=== PATIENT | female | born 1935 | race Caucasian/White ===

== ENCOUNTER 2021-12-16 18:25 | Inpatient (IN) | payer MEDICARE, OTHER ==
[~2021-12-16] VITALS: Ht 153 cm; Wt 70.3 kg
[2021-12-16 20:04] LABS: HEMATOCRIT 37.4 % (31.2-41.9); MEAN CORPUSCULAR HEMOGLOBIN 30.3 uug (24.7-32.8); MEAN CORPUSCULAR VOLUME 91.1 fL (75.5-95.3); PLATELET COUNT (AUTO) 241 K/uL (179-408)
[2021-12-16 20:31] LABS: ALANINE AMINOTRANSFERASE 42 U/L (14-59); ALKALINE PHOSPHATASE 50 U/L (50-136); ASPARTATE AMINOTRANSFERASE 27 U/L (15-37); BILIRUBIN,DIRECT 0.1 mg/dL (0.0-0.2); BILIRUBIN,TOTAL 0.4 mg/dL (0.2-1.0); CARBON DIOXIDE 24 mmol/L (21-32); CHLORIDE 106 mmol/L (98-107); GLUCOSE 128 mg/dL (74-106); POTASSIUM 4.1 mmol/L (3.5-5.1); TOTAL PROTEIN, SERUM 6.9 g/dL (6.4-8.2); UREA NITROGEN, BLOOD 20 mg/dL (7-18)
[2021-12-16 20:33] LABS: ETHANOL < 3 MG/DL (0-0)
[2021-12-16 20:36] LABS: ACETAMINOPHEN < 2.0 ug/mL (10-30)
--- NOTE | 2021-12-16 20:40 | NUR ---
called warehouse shipping clerk Nga SAMUELS. no sitter available at this time
--- NOTE | 2021-12-16 21:00 | NUR ---
Patient is being combative. Screaming and shouting towards staff. Dr Wilder ordered Zyprexa 5mg IM
--- NOTE | 2021-12-16 21:55 | NUR ---
covid swab collected, sent to lab.
[2021-12-16] MEDS ORDERED: OLANZAPINE 10 MG VIAL IM ONE ×2 (22:00)
--- NOTE | 2021-12-17 00:35 | NUR ---
Called MHU for report. Spoke with Morgan. Will call back in 20 mins
--- NOTE | 2021-12-17 00:48 | NUR ---
report Given to Morgan SAMUELS. Patient will be transfered to MHU room 140B
--- NOTE | 2021-12-17 01:10 | NUR ---
Patient transfered to MHU via david by Nga SAMUELS
--- NOTE | 2021-12-17 01:14 | NUR ---
Pt. admitted to MHU room 140B , under care of Dr. Villar Belongs List completed
[2021-12-17] MEDS ORDERED: MAG HYDROX/AL HYDROX/SIMETH 30 ML LIQUID UDC PO PRN (02:15)
[2021-12-17] MEDS ORDERED: MAGNESIUM HYDROXIDE 30 ML LIQUID UDC PO PRN (02:15)
[2021-12-17 05:11] VITALS: BP 108/49
--- NOTE | 2021-12-17 06:34 | NUR ---
86 y/o female brought into MHU via gurney from ER. Pt is on a 5150 hold for DTS. Per information obtained from patient's residence ([facility]), pt was reported wandering the streets confused, disoriented, and had no shoes on. Pt was unable to let [place] [employer] were she lived, so [employer] brought her to [facility] in [place], [place]. Needing further psychiatric evaluation, pt was brought to [facility]'s ER dept. Upon face to face assessment in [facility]'s mental health unit, pt was AOx1, confused, disoriented, but able to be re-directed. Abnormal skin tissue noted above (L) eyebrow. Possible skin or ear infection above (L) ear. Pt is malodorous, disheveled, and unkept. Dry flaky skin is present on (R) upper back. Needs assistance with ambulation d/t unsteady gait and balance. No s/s of respiratory distress, nor pain. Medication reconciliation needed for patient's medications with psychiatrist Jian. Currently being treated for UTI.
[2021-12-17 07:35] VITALS: BP 132/59
--- NOTE | 2021-12-17 12:31 | NUR ---
GPS: Nursing Notes: Thought Disorder: Patient is awake and responding to her name, disoriented, impaired judgment, poor insight, compliant with nursing care, showered, poor historian, episodes of talking incoherently, A/Ox1, redirected and reoriented during shift, unable to formulate a viable plan for self care, isolative and withdrawn in her room, low energy level, refusing to participate in therapeutic groups, continue to monitor for safety, continue with treatment plan.
[2021-12-17 16:00] VITALS: BP 126/54
[2021-12-17 19:58] VITALS: BP 132/56
[2021-12-17] MEDS: OLANZAPINE 2.5 MG TABLET PO SCH (20:05)
--- NOTE | 2021-12-18 06:44 | NUR ---
GPS: Pt.slept 9 hrs.last night. Anxious at times but re-directable. Re-assured prn. Fall precautions observed. Insight and judgement remains impaired. No aggressive behavior noted. Will continue to monitor.
[2021-12-18 07:00] LABS: *AMPHETAMINE, URINE NEGATIVE (NEGATIVE); *CANNABINOID, URINE NEGATIVE (NEGATIVE); *COCCAINE, URINE NEGATIVE (NEGATIVE); *OPIATE, URINE NEGATIVE (NEGATIVE); *PHENCYCLIDINE SCREEN,URINE NEGATIVE (NEGATIVE)
[2021-12-18 07:01] LABS: *BILIRUBIN,URIN NEGATIVE (NEGATIVE); *CLARITY,URINE CLEAR (CLEAR); *COLOR,URINE YELLOW (YELLOW); *KETONES,URINE NEGATIVE (NEGATIVE); *UROBILINOGEN,URINE 0.2 E.U./dl (NORMAL); LEUKOCYTE ESTERASE ,URINE 1+ (NEGATIVE); NITRITE, URINE NEGATIVE (NEGATIVE); PH,URINE 5.5 (5.0-8.0); UGLUCOSE NEGATIVE (NEGATIVE)
[2021-12-18 07:30] VITALS: BP 136/62
[2021-12-18 08:21] LABS: *BLOOD, URINE TRACE (NEGATIVE)
--- NOTE | 2021-12-18 13:43 | NUR ---
Pt's had increased anxiety and agitation when attempting to clean and change her diapers d/t soiling. Gave Ativan 1mg. Will continue to monitor. Addendum: 12/18/21 at 1348 by HUDSON SIMEON LVN Correction: Error: Gave Clonazepam (Klonopin) 0.5 mg, x1 tablet instead of Ativan as stated above.
[2021-12-18] MEDS: CLONAZEPAM 0.5 MG TABLET PO PRN (13:48)
[2021-12-18 16:00] VITALS: BP 136/70
--- NOTE | 2021-12-18 16:26 | NUR ---
ITA Initial Discharge Plan: Pt currently resides at [facility]. No additional information at this time. It is unclear at this time if pt will return to this facility. ITA contacted pt's son, Julius [phone] and left a voicemail for a call back regarding the discharge plan. ITA will continue to work with pt, family and MD to ensure a safe and proper discharge plan.
[2021-12-18 19:50] VITALS: BP 130/64
[2021-12-18] MEDS: OLANZAPINE 2.5 MG TABLET PO SCH (20:05)
[2021-12-18] MEDS: CEphaleXIN 250 MG CAPSULE PO SCH (21:04)
[2021-12-18] MEDS: METFORMIN HCL 500 MG TABLET PO SCH (21:05)
[2021-12-18 22:42] LABS: BACTERIA,URINE NONE SEEN /HPF (NONE SEEN); RBC,URINE 0-3 /HPF (0-3); SQUAMOUS EPITHELIAL CELL,UR FEW /HPF (NONE SEEN)
[2021-12-18] MEDS: REMEDY ESSENTIAL ZINC PASTE 113 GM TOP PRN (22:42)
[2021-12-19] MEDS: CEphaleXIN 250 MG CAPSULE PO SCH ×3 (06:19→21:19)
[2021-12-19 07:30] VITALS: BP 135/47
--- NOTE | 2021-12-19 09:33 | NUR ---
ITA Family Contact: ITA contacted pt's son, Julius [phone] and was unable to leave a voicemail for a call back regarding the discharge plan.
[2021-12-19] MEDS: METFORMIN HCL 500 MG TABLET PO SCH ×2 (10:24→18:38)
--- NOTE | 2021-12-19 14:45 | NUR ---
Firearms Report: Hospice Aide completed and submitted a [employer] firearms report for 5150 grave disability certifications. A copy of report has been placed in patient chart.
[2021-12-19 16:00] VITALS: BP 144/49
[2021-12-19 19:48] VITALS: BP 125/72
[2021-12-19] MEDS: OLANZAPINE 2.5 MG TABLET PO SCH (21:19)
[2021-12-19] MEDS: TEMAZEPAM 7.5 MG CAPSULE PO PRN (23:54)
[2021-12-20] MEDS: CLONAZEPAM 0.5 MG TABLET PO PRN (01:10)
[2021-12-20] MEDS: CEphaleXIN 250 MG CAPSULE PO SCH ×3 (06:08→21:09)
--- NOTE | 2021-12-20 06:55 | NUR ---
Pt had no sleep last night. Pt was hallucinating, talking to the invisible people and pointing at invisible objects. Pt was in and out of the bed, walking out of her room, saying that she is going shopping or she is going to "her room". Redirections are not effective. Pt has poor safety awareness. PRN medications for insomnia and agitation were not effective. Pt was assisted out of the bed to a neal chair.
[2021-12-20] MEDS: METFORMIN HCL 500 MG TABLET PO SCH ×2 (09:14→18:00)
[2021-12-20 16:18] VITALS: BP 115/41
--- NOTE | 2021-12-20 17:30 | NUR ---
Gps/Alignment Mechanic- Stayed in her neal-chair most of the morning , assisted with her meals, compliant with routine meds. left parietal bumps, Sleepy this pm. was assisted to bed max assist.
[2021-12-20 19:56] VITALS: BP 115/47
[2021-12-20] MEDS: OLANZAPINE 2.5 MG TABLET PO SCH (20:56)
[2021-12-21] MEDS: ACETAMINOPHEN 325 MG TABLET PO PRN (04:06)
[2021-12-21] MEDS: CLONAZEPAM 0.5 MG TABLET PO PRN (04:06)
--- NOTE | 2021-12-21 06:00 | NUR ---
PATIENT SLEPT WELL THROUGHOUT THE NIGHT. SHOWERED AND DRESSING APPLIED TO AFFECTED AREA.
[2021-12-21] MEDS: CEphaleXIN 250 MG CAPSULE PO SCH (06:10)
[2021-12-21 07:30] VITALS: BP 109/53
[2021-12-21] MEDS: LISINOPRIL 5 MG TABLET PO SCH (09:56)
[2021-12-21] MEDS: METFORMIN HCL 500 MG TABLET PO SCH ×2 (09:56→17:06)
--- NOTE | 2021-12-21 11:10 | NUR ---
Gps/Malt House Supervisor- Stayed up in her enal-chair, was moaning, , when asked if she ok, claimed " i 'm ok" Assisted to the bathroom with 2 staff assisting, needing verbal cueing in sequencing her task. Dressing to her head, to protect left temporal bumps . Skin very dry, tenting , fragile [employer] of loose stools, , voiding adequately, assisted with hygien, redness coccygeal area, z-guard applied.
[2021-12-21 16:00] VITALS: BP 101/47
[2021-12-21] MEDS: GLUCERNA SHAKE 237 ML CAN PO SCH (17:00)
[2021-12-21 20:22] VITALS: BP 121/51
[2021-12-21] MEDS: OLANZAPINE 2.5 MG TABLET PO SCH (20:23)
--- NOTE | 2021-12-22 05:28 | NUR ---
GPS: Remain calm and cooperative with meds and care. good joey care provided. kept clean and dry. Anxious at times but re-directable. Re-assured prn. Fall precautions observed. Insight and judgement remains impaired. No aggressive behavior noted. Will continue to monitor.
--- NOTE | 2021-12-22 05:53 | NUR ---
slept 8.45 hrs through the night.
[2021-12-22 07:45] VITALS: BP 111/52
[2021-12-22] MEDS: METFORMIN HCL 500 MG TABLET PO SCH ×2 (09:25→18:17)
[2021-12-22] MEDS: GLUCERNA SHAKE 237 ML CAN PO SCH ×2 (09:25→17:32)
[2021-12-22] MEDS: LISINOPRIL 5 MG TABLET PO SCH (09:25)
--- NOTE | 2021-12-22 16:45 | NUR ---
Gps/Lmsw- Toileted, voiding adequately, encouraged to feed self. Compliant with her routine meds. Left parietal skin bumps with dressing remains secured. Interacts when engaged,Safety emphasized.
--- NOTE | 2021-12-22 17:00 | NUR ---
Gps/Stamper Blocker- Stayed in her hgeri-chair during the theday
[2021-12-22 20:29] VITALS: BP 111/63
[2021-12-22] MEDS: OLANZAPINE 2.5 MG TABLET PO SCH (21:19)
--- NOTE | 2021-12-23 00:22 | NUR ---
Pt is compliant with POC. Keratoma above (L) eye/on forehead was covered by previous nurse with 4x4 gauze, Kerlix, and secured with tape.
[2021-12-23 07:46] VITALS: BP 127/53
[2021-12-23] MEDS: GLUCERNA SHAKE 237 ML CAN PO SCH ×2 (08:00→16:47)
[2021-12-23] MEDS: METFORMIN HCL 500 MG TABLET PO SCH ×2 (09:15→17:03)
[2021-12-23] MEDS: LISINOPRIL 5 MG TABLET PO SCH (09:16)
[2021-12-23] MEDS: REMEDY ESSENTIAL ZINC PASTE 113 GM TOP SCH ×2 (09:17→21:25)
--- NOTE | 2021-12-23 11:57 | NUR ---
WOUND CARE CONSULT: PT SEEN FOR FACIAL LESIONS WHICH ARE PAINFUL WITH SOME BLEEDING NOTED AND SLIGHT ODOR. PRESENT ON ADMISSION. PT STATES THAT THEY ARE SKIN CANCER BUT SHE IS UNSURE WHICH TYPE OF CANCER. DR MELLO CALLED FOR SURGICAL CONSULT. IN AGREEMENT WITH PLAN OF CARE.
--- NOTE | 2021-12-23 13:12 | NUR ---
GPS: Nursing Notes: Thought Disorder: Patient is awake and responding to her name, A/OX2, disoriented to time, forgetful at times, disorganized, poor appetite, refusing to eat, stated "I don't know.. I am not hungry..", no interactions with peers, depressed mood and withdrawn affect, unable to formulate a viable plan for self care, episodes of talking to self, gets easily angry when food is offer to her, continue to monitor for safety, continue to be drinking fluids, continue with treatment plan.
--- NOTE | 2021-12-23 15:06 | NUR ---
ITA Discharge update: ITA spoke with adali in admissions ([phone]) F:[phone] at [facility]. Adali said they will review updated clinicals upon discharge for readmission.
[2021-12-23 16:11] VITALS: BP 109/54
[2021-12-23 19:48] VITALS: BP 137/63
[2021-12-23] MEDS: OLANZAPINE 5 MG TABLET PO SCH (21:25)
[2021-12-24 07:30] VITALS: BP 120/49
[2021-12-24] MEDS: GLUCERNA SHAKE 237 ML CAN PO SCH ×2 (08:00→16:27)
[2021-12-24] MEDS: METFORMIN HCL 500 MG TABLET PO SCH ×2 (08:00→17:13)
[2021-12-24] MEDS: LISINOPRIL 5 MG TABLET PO SCH (08:39)
[2021-12-24] MEDS: CLONAZEPAM 0.5 MG TABLET PO PRN (08:39)
[2021-12-24] MEDS: REMEDY ESSENTIAL ZINC PASTE 113 GM TOP SCH ×2 (08:40→20:27)
[2021-12-24] MEDS ORDERED: SILVER NITRATE APPLICATOR STICK EACH TP ONE (10:30)
[2021-12-24] MEDS ORDERED: LIDOCAINE 1%-EPI 1:100,000 20 ML VIAL IJ ONE (10:30)
[2021-12-24 15:31] VITALS: BP 110/50
--- NOTE | 2021-12-24 16:01 | NUR ---
GPS: Nursing Notes: Thought Disorder: Patient is awake and responding to her name, poor appetite, refusing to eat, continue to encourage fluid intake, gets easily angry and paranoid when redirected, shouting "I don't want to eat, continue drinking fluids, resistant with nursing care, episode fo mumbling to unseen others, unable to formulate a viable plan for self care, redirected and reoriented during shift, continue to monitor for safety, continue with treatment plan.
[2021-12-24 20:23] VITALS: BP 117/60
[2021-12-24] MEDS: OLANZAPINE 5 MG TABLET PO SCH (20:45)
[2021-12-25] MEDS: REMEDY ESSENTIAL ZINC PASTE 113 GM TOP PRN (05:33)
--- NOTE | 2021-12-25 06:23 | NUR ---
GPS: Pt.slept 9.45 last night. Remains confused,disoriented and disorganized. Reality re-orientation provided. Less anxious and listens to re-assurance and re-direction from staff. Incontinence care rendered. No diarrhea episodes noted . Encouraged to eat meals served during the day. Fluids encouraged. Afebrile.
[2021-12-25 07:30] VITALS: BP 115/53
[2021-12-25] MEDS: METFORMIN HCL 500 MG TABLET PO SCH ×2 (07:40→09:14)
[2021-12-25] MEDS: GLUCERNA SHAKE 237 ML CAN PO SCH ×2 (08:00→09:01)
[2021-12-25] MEDS: LISINOPRIL 5 MG TABLET PO SCH (08:46)
[2021-12-25] MEDS: REMEDY ESSENTIAL ZINC PASTE 113 GM TOP SCH ×2 (09:00→20:11)
[2021-12-25 15:43] VITALS: BP 92/50
[2021-12-25 19:58] VITALS: BP 101/51
[2021-12-25] MEDS: OLANZAPINE 5 MG TABLET PO SCH (20:11)
[2021-12-26] MEDS: TEMAZEPAM 7.5 MG CAPSULE PO PRN (01:47)
[2021-12-26] MEDS: REMEDY ESSENTIAL ZINC PASTE 113 GM TOP PRN (05:37)
[2021-12-26 07:30] VITALS: BP 131/57
[2021-12-26] MEDS: METFORMIN HCL 500 MG TABLET PO SCH ×2 (09:08→17:47)
[2021-12-26] MEDS: LISINOPRIL 5 MG TABLET PO SCH (09:08)
[2021-12-26] MEDS: GLUCERNA SHAKE 237 ML CAN PO SCH ×2 (09:09→17:39)
[2021-12-26] MEDS: REMEDY ESSENTIAL ZINC PASTE 113 GM TOP SCH ×2 (09:29→20:33)
--- NOTE | 2021-12-26 12:25 | NUR ---
Gps/Heel Nail Rasper- Incontinent of loose stools. God joey- care/ skin care rendered, joey-area cleansed with soap and water, kept dry, z-guard applied to excoriated areas. Repositioned to her right side , pressure relief . Adequate fluid intake, offered fluids.
--- NOTE | 2021-12-26 12:57 | NUR ---
PC Hearing: Patient had 5250 probable cause hearing on 12/20/21 and it was upheld for grave disability.
[2021-12-26 17:25] VITALS: BP 105/52
--- NOTE | 2021-12-26 17:30 | NUR ---
Gps/Marketing Summer Intern- Offered to be fed during each meals, refused , willing to take Glucerna supplements, ,not sure if causing patient to have loose stools. Kept skin dry clean.
[2021-12-26] MEDS: ACETAMINOPHEN 325 MG TABLET PO PRN (17:59)
[2021-12-26] MEDS: OLANZAPINE 5 MG TABLET PO SCH (20:33)
[2021-12-26 20:47] VITALS: BP 118/50
--- NOTE | 2021-12-27 04:27 | NUR ---
Awake at beginning of shift. Took meds without difficulty. No acute distress noted. Incontinent of bowel and bladder. Kept clean and dry. BM noted this shift. No signs of agitation or restlessness. Calm and cooperative with care. Fall precautions maintained. Bed alarm on.
[2021-12-27 07:30] VITALS: BP 134/48
[2021-12-27] MEDS: METFORMIN HCL 500 MG TABLET PO SCH ×2 (08:00→18:00)
[2021-12-27] MEDS: GLUCERNA SHAKE 237 ML CAN PO SCH ×2 (08:00→16:50)
[2021-12-27] MEDS: LISINOPRIL 5 MG TABLET PO SCH (08:58)
--- NOTE | 2021-12-27 14:42 | NUR ---
ITA Discharge update: ITA called and spoke with Adali in admissions ([phone]) F:[phone] [facility]. Adali said she will call back with updates on bed availability. ITA faxed updated clinicals for review.
--- NOTE | 2021-12-27 14:51 | NUR ---
SNF Referrals: SW faxed patient's referral packet including: History and Physical, Consultation, Progress Notes, Medication List and Labs to the following facilities for review and possible residential placement: [facility] [address] [place] [address] ([phone]), Favian Ramirez [address] [place] [address] ([phone]) attn: mary Rodríguez [address] [address] ([phone]) attn: Jackelin for review.
--- NOTE | 2021-12-27 15:12 | NUR ---
SW Discharge Update: ITA received call from Adali in admissions ([phone]) F:[phone] at [facility] informing they are unable to accept pt. Adali explained that DON declined referral as pt left AMA and called the police.
--- NOTE | 2021-12-27 15:18 | NUR ---
SNF Referrals: SW faxed patient's referral packet including: History and Physical, Consultation, Progress Notes, Medication List and Labs to the following facility for review and possible penitentiary placement: [address] [address] ([phone]) attn: Marcelino for review.
[2021-12-27 16:00] VITALS: BP 143/64
[2021-12-27] MEDS: REMEDY ESSENTIAL ZINC PASTE 113 GM TOP SCH ×2 (16:49→20:29)
[2021-12-27] MEDS ORDERED: LOPERAMIDE HCL 2 MG CAPSULE PO PRN (19:45)
[2021-12-27 20:00] VITALS: BP 124/62
[2021-12-27] MEDS: OLANZAPINE 5 MG TABLET PO SCH (20:29)
--- NOTE | 2021-12-28 06:08 | NUR ---
GPS: Remain cooperative with meds. easily get agitated when proving adl's. good joey care given. reposition q 2 hrs for skin safety. slept 8 hrs through the night. continue plan of care.
[2021-12-28 07:56] VITALS: BP 132/64
[2021-12-28] MEDS: PROTEIN SUPPLEMENT (PROSTAT) 30 ML LIQUID PO SCH (08:00)
[2021-12-28] MEDS: METFORMIN HCL 500 MG TABLET PO SCH ×2 (08:00→18:00)
[2021-12-28] MEDS: GLUCERNA SHAKE 237 ML CAN PO SCH ×3 (08:23→16:30)
[2021-12-28] MEDS: CLONAZEPAM 0.5 MG TABLET PO PRN (08:23)
[2021-12-28] MEDS: REMEDY ESSENTIAL ZINC PASTE 113 GM TOP SCH ×2 (08:24→21:27)
[2021-12-28] MEDS: LISINOPRIL 5 MG TABLET PO SCH (08:46)
[2021-12-28] MEDS: ASPIRIN EC 81 MG TABLET.DR PO SCH (09:09)
--- NOTE | 2021-12-28 13:53 | NUR ---
GPS: Nursing Notes: Thought Disorder: Patient is awake and responding to her name, impaired judgment, resistant with nursing care, gets easily irritable when assisting her with her ADL's, refusing to eat her meals and supplements, stating "I am not hungry... I just want to drink water..", encouraged to eat her meals, but gets easily angry toward staff shouting "I told you.. I am not hungry..", depressed mood and angry affect, resistant with nursing care, unable to formulate a viable plan for self care, impaired judgment, poor insight, disoriented, forgetful at times, continue to monitor for safety, continue with treatment plan.
[2021-12-28 16:18] VITALS: BP 105/44
[2021-12-28 19:54] VITALS: BP 109/49
[2021-12-28] MEDS: ATORVASTATIN 20 MG TABLET PO SCH (20:40)
[2021-12-28] MEDS: OLANZAPINE 5 MG TABLET PO SCH (20:40)
[2021-12-29] MEDS: CLONAZEPAM 0.5 MG TABLET PO PRN ×2 (02:07→08:13)
--- NOTE | 2021-12-29 02:07 | NUR ---
patient c/o anxiety. Klonopin 0.5 mg po prn given for anxiety.
--- NOTE | 2021-12-29 03:07 | NUR ---
patient resting in bed.quitely prn for anxiety effective.
--- NOTE | 2021-12-29 06:33 | NUR ---
GPS: Remain cooperative with meds. easily get agitated when proving adl's. good joey care given. reposition q 2 hrs for skin safety. took shower this morning. slept 9.45 hrs through the night. resting in neal chair at this time. continue plan of care.
[2021-12-29 07:52] VITALS: BP 122/66
[2021-12-29] MEDS: METFORMIN HCL 500 MG TABLET PO SCH ×2 (08:00→17:11)
[2021-12-29] MEDS: LISINOPRIL 5 MG TABLET PO SCH (08:13)
[2021-12-29] MEDS: ASPIRIN EC 81 MG TABLET.DR PO SCH (08:13)
[2021-12-29] MEDS: PROTEIN SUPPLEMENT (PROSTAT) 30 ML LIQUID PO SCH (08:15)
[2021-12-29] MEDS: GLUCERNA SHAKE 237 ML CAN PO SCH ×3 (08:17→16:36)
[2021-12-29] MEDS: REMEDY ESSENTIAL ZINC PASTE 113 GM TOP SCH ×2 (08:18→21:08)
[2021-12-29 16:11] VITALS: BP 103/65
--- NOTE | 2021-12-29 17:01 | NUR ---
GPS: Nursing Notes: Thought Disorder: Patient is awake and responding to her name, evasive when questioned by staff, poor appetite, eating 25% of her breakfast tray, depressed mood and angry affect, compliant with her medications, disoriented, impaired judgment, informed her psychiatrist of her poor appetite and depression - To start Remeron tonight, unable to formulate a viable for self care, continue to monitor for safety, continue with treatment plan.
[2021-12-29] MEDS: GUAIFENESIN/DEXTROMETHORPHAN 5 ML UDC PO PRN (17:23)
[2021-12-29 20:06] VITALS: BP 105/50
[2021-12-29] MEDS: OLANZAPINE 5 MG TABLET PO SCH (21:07)
[2021-12-29] MEDS: ATORVASTATIN 20 MG TABLET PO SCH (21:07)
[2021-12-29] MEDS: MIRTAZAPINE 15 MG TABLET PO SCH (21:08)
[2021-12-29] MEDS: TEMAZEPAM 7.5 MG CAPSULE PO PRN (21:39)
[2021-12-29] MEDS: ACETAMINOPHEN 325 MG TABLET PO PRN (21:40)
--- NOTE | 2021-12-29 21:40 | NUR ---
Patient requested medication to help with sleep. Gave Temazepam 7.5mg for insomnia. Will continue to monitor.
[2021-12-30] MEDS: ACETAMINOPHEN 325 MG TABLET PO PRN ×2 (05:06→21:57)
--- NOTE | 2021-12-30 05:06 | NUR ---
Cleansed patients perineal area and changed diapers. Applied Z-Guard for redness and irritated skin. Gave Tylenol d/t tenderness and pain when cleaning irritated/reddened buttocks. Will continue to monitor.
[2021-12-30 07:47] VITALS: BP 94/41
[2021-12-30] MEDS: PROTEIN SUPPLEMENT (PROSTAT) 30 ML LIQUID PO SCH (08:00)
[2021-12-30] MEDS: METFORMIN HCL 500 MG TABLET PO SCH ×2 (08:00→17:10)
[2021-12-30] MEDS: REMEDY ESSENTIAL ZINC PASTE 113 GM TOP SCH ×2 (08:03→20:38)
[2021-12-30] MEDS: ASPIRIN EC 81 MG TABLET.DR PO SCH ×2 (08:31→12:00)
[2021-12-30] MEDS: GLUCERNA SHAKE 237 ML CAN PO SCH ×3 (08:32→17:00)
[2021-12-30] MEDS: LISINOPRIL 5 MG TABLET PO SCH (08:32)
--- NOTE | 2021-12-30 09:32 | NUR ---
GPS: Nursing Notes: Discharge to Med. Surg. Informed to Nursing Clipper Operator: Staff called Nursing Clipper Operator to get a bed for the medical floor department, Sam Wilson NP to discharge patient to Med. Surg. with Dx: Poor nutritional intake, Nursing Clipper Operator stated that "She will call staff back with a bed number to discharge patient to the medical floor..", Sam Wilson NP to discontinue the 5250 upon discharge to Med. Surg, continue to monitor for safety, continue with treatment plan.
[2021-12-30] MEDS: GUAIFENESIN/DEXTROMETHORPHAN 5 ML UDC PO PRN (12:00)
[2021-12-30 16:07] VITALS: BP 109/47
--- NOTE | 2021-12-30 16:52 | NUR ---
GPS: Nursing Notes: Discharge to Med. Surg: Staff called back the nursing supervisor fish hatchery for a bed number to discharge patient to the medical floor, but she stated that "the patient needs to be discharge to next shift because there are no bed available right now, continue to monitor for safety, informed Earlene of the situation stated "it is okay..", continue with treatment plan.
--- NOTE | 2021-12-30 19:22 | NUR ---
GPS: Nursing Notes: To Be Discharge Next Shift: staff informed incoming shift nurse of discharge, incoming shift nurse to discharge patient to Med. Surg. Patient refused for pictures to be taken of her facial mass, but incoming nurse would tried again, continue with treatment plan.
[2021-12-30 20:00] VITALS: BP 114/47
[2021-12-30] MEDS: ATORVASTATIN 20 MG TABLET PO SCH (20:37)
[2021-12-30] MEDS: OLANZAPINE 5 MG TABLET PO SCH (20:37)
[2021-12-30] MEDS: MIRTAZAPINE 15 MG TABLET PO SCH (20:41)
[2021-12-30] MEDS: CLONAZEPAM 0.5 MG TABLET PO PRN (21:57)
--- NOTE | 2021-12-30 22:10 | NUR ---
DISCHARGE NOTES: Patient discharged to MED-SURG floor d/t to failure to thrive. Pictures on the buttocks. ear and forehead taken. Patient is noted facial grimacing and moaning, and agitated. Given tylenol and klonopon per order. Safely transferred from bed to w/c. No distress noted. Wheeled safely to room 308 by CRYOGENICS ENGINEER on duty.
== END 2021-12-30 22:08 | disposition short-term general hospital (02) | DRG 885 ==
LOC: ER 18:29 → GPS 23:30
PROVIDERS: ADMIT Nurse Practitioner Psychiatric/Mental Health; ATTEND Internal Medicine
PROC: 0JB Subcutaneous Tissue and Fascia, Excision (ICD-10-PCS; principal; 2021-12-24)
DX: F29 Unspecified psychosis not due to a substance or known physiological condition (principal); N39.0 Urinary tract infection, site not specified; F03.92 Unspecified dementia, unspecified severity, with psychotic disturbance; E66.9 Obesity, unspecified; Z68.30 Body mass index [BMI] 30.0-30.9, adult; E11.9 Type 2 diabetes mellitus without complications; E78.1 Pure hyperglyceridemia; Z20.822 Contact with and (suspected) exposure to COVID-19; Z87.891 Personal history of nicotine dependence; Z86.73 Personal history of transient ischemic attack (TIA), and cerebral infarction without residual deficits; I10 Essential (primary) hypertension; R22.9 Localized swelling, mass and lump, unspecified; Z87.11 Personal history of peptic ulcer disease; Z85.828 Personal history of other malignant neoplasm of skin
CPT/HCPCS: 36415; 70450; 70480; 85025; 87086; 93005; A4663; G0480; J2358; J3490

== ENCOUNTER 2021-12-30 21:15 | Inpatient (IN) | payer MEDICARE, OTHER ==
[2021-12-30 22:15] VITALS: BP 105/53
--- NOTE | 2021-12-30 23:30 | NUR ---
Patient is admitted to room 309 form MHU where she was originally transferred from [facility] for care after she found agitated and eloped from SNF as per previous record. Patient is alert and confused, not a good historian all information is obtain from her transfer paper. Patient has left eyebrow lesion, sacral excoriation, she is incontinent of bowel and bladder care done made comfortable call light within reach.
[2021-12-31] VITALS (7 sets, daily range): BP systolic 105–143; BP diastolic 53–83
[2021-12-31] MEDS ORDERED: REMEDY ESSENTIAL ZINC PASTE 113 GM TP PRN (03:00)
[2021-12-31] MEDS ORDERED: ACETAMINOPHEN 325 MG TABLET PO PRN (03:00)
[2021-12-31] MEDS ORDERED: ONDANSETRON 4 MG/2 ML VIAL IV PRN (03:00)
[2021-12-31 05:58] LABS: *BILIRUBIN,URIN 1+ (NEGATIVE); *BLOOD, URINE NEGATIVE (NEGATIVE); *CLARITY,URINE CLEAR (CLEAR); *COLOR,URINE YELLOW (YELLOW); *KETONES,URINE TRACE (NEGATIVE); *UROBILINOGEN,URINE 0.2 E.U./dl (NORMAL); LEUKOCYTE ESTERASE ,URINE NEGATIVE (NEGATIVE); NITRITE, URINE NEGATIVE (NEGATIVE); PH,URINE 5.5 (5.0-8.0); UGLUCOSE NEGATIVE (NEGATIVE)
[2021-12-31] MEDS: IV D5 1/2 NS 1000 ML 1,000 ML IV PRN (06:44)
[2021-12-31 07:09] LABS: HEMATOCRIT 38.1 % (31.2-41.9); MEAN CORPUSCULAR HEMOGLOBIN 30.7 uug (24.7-32.8); MEAN CORPUSCULAR VOLUME 88.7 fL (75.5-95.3); PLATELET COUNT (AUTO) 166 K/uL (179-408)
[2021-12-31 07:27] LABS: ALANINE AMINOTRANSFERASE 47 U/L (14-59); ALKALINE PHOSPHATASE 62 U/L (50-136); ASPARTATE AMINOTRANSFERASE 32 U/L (15-37); BILIRUBIN,TOTAL 0.6 mg/dL (0.2-1.0); CARBON DIOXIDE 19 mmol/L (21-32); CHLORIDE 105 mmol/L (98-107); CREATININE 1.6 mg/dL (0.6-1.3); GLUCOSE 99 mg/dL (74-106); MAGNESIUM 2.2 mg/dL (1.8-2.4); PHOSPHOROUS 5.8 mg/dL (2.5-4.9); POTASSIUM 3.2 mmol/L (3.5-5.1); TOTAL PROTEIN, SERUM 6.4 g/dL (6.4-8.2); UREA NITROGEN, BLOOD 53 mg/dL (7-18)
[2021-12-31] MEDS: PANTOPRAZOLE SODIUM 40 MG TABLET.DR PO SCH (07:43)
--- NOTE | 2021-12-31 10:45 | NUR ---
Patient was seen by psychologist this morning she was awake more alert, expresses her needs to the doctor and the reason for her poor appetite. Patient consumed O% of her breakfast despite much encouragement. Staff will continue to monitor and encourage patient verbalize food preferences.
[2021-12-31 15:17] LABS: THYROID STIMULATING HORMONE 2.463 mIU/mL (0.358-3.740)
[2021-12-31 18:13] LABS: NEUTROPHILS % (MANUAL) 0 % (42-75)
[2021-12-31] MEDS: MIRTAZAPINE 15 MG TABLET PO SCH (21:00)
[2022-01-01 04:15] VITALS: BP 121/57
[2022-01-01] MEDS: PANTOPRAZOLE SODIUM 40 MG TABLET.DR PO SCH (06:32)
[2022-01-01] MEDS: IV D5 1/2 NS 1000 ML 1,000 ML IV PRN (07:03)
[2022-01-01 07:19] LABS: CREATININE 1.2 mg/dL (0.6-1.3); MAGNESIUM 2.1 mg/dL (1.8-2.4); PHOSPHOROUS 3.8 mg/dL (2.5-4.9); POTASSIUM 3.5 mmol/L (3.5-5.1)
[2022-01-01 08:14] LABS: HEMATOCRIT 39.8 % (31.2-41.9); MEAN CORPUSCULAR HEMOGLOBIN 30.1 uug (24.7-32.8); MEAN CORPUSCULAR VOLUME 88.7 fL (75.5-95.3); PLATELET COUNT (AUTO) 185 K/uL (179-408)
--- NOTE | 2022-01-01 10:51 | NUR ---
WOUND CARE CONSULT: PT PRESENTS WITH RASH/OPEN SKIN TO INNER BUTTOCKS AREA DUE TO INCONTINENCE OF URINE AND STOOL WELL LESIONS TO LEFT SIDE OF FACE, PRESENT ON ADMISSION. PT FOLLOWED BY PLASTIC SURGERY TEAM FOR FACE. RECOMMENDATIONS MADE FOR SKIN PROTECTION. DISCUSSED WITH NURSING STAFF. IN AGREEMENT WITH PLAN OF CARE. Addendum: 01/01/22 at 1053 by YESSICA FORRESTER RN Amended: Links added.
[2022-01-01 11:47] VITALS: BP 125/66
[2022-01-01 15:54] VITALS: BP 131/49
[2022-01-01] MEDS: CLOTRIMAZOLE 1% CREAM 30 GM TUBE TOP SCH (18:01)
--- NOTE | 2022-01-01 19:01 | NUR ---
pt alert orient 2-3. no complain of pain. no sob noted. pt is bedrest. no acute distress noted. fall precaution observed. pt is cooperative with staff. rashes on groin and buttocks area. wound care nurse consulted; lotrimin cream was ordered. geovanna midline patent and intact running d51/2 at 75cc/hr. pt have multiple episode of loose stool notified no new order.
--- NOTE | 2022-01-01 19:24 | NUR ---
Received report at this time from nurse Linda.
--- NOTE | 2022-01-01 19:43 | NUR ---
Rounded on patient and noted patient has taken out own midline. Catheter tip intact. Gauze and tape placed. Notified charged RN.
[2022-01-01 20:00] VITALS: BP 113/53
[2022-01-01] MEDS: MIRTAZAPINE 15 MG TABLET PO SCH (20:25)
[2022-01-02 04:00] VITALS: BP 102/63
[2022-01-02] MEDS: PANTOPRAZOLE SODIUM 40 MG TABLET.DR PO SCH ×2 (07:00→07:56)
--- NOTE | 2022-01-02 07:13 | NUR ---
Report given to ABRIL Linda at this time. Pt slept throughout night. Uneventful besides the pulling out of midline. Unable to establish another iv access. Failed attempt x3. Endorsed to dayshift.
[2022-01-02] MEDS: CLOTRIMAZOLE 1% CREAM 30 GM TUBE TOP SCH ×2 (09:28→16:52)
[2022-01-02 11:08] VITALS: BP 108/48
[2022-01-02] MEDS: IV D5 1/2 NS 1000 ML 1,000 ML IV PRN (13:48)
--- NOTE | 2022-01-02 13:48 | NUR ---
Patient got another midline today as she pulled out her first one. She removed her second midline and refused my attempt to put a new iv line on her. She also refused IV fluids. Dr Crews is aware now
[2022-01-02 15:17] VITALS: BP 124/61
[2022-01-02] MEDS ORDERED: LORAZEPAM 2 MG/1 ML VIAL IM PRN (16:45)
--- NOTE | 2022-01-02 20:00 | NUR ---
Received patient lying in bed. AAOx1 only. Mainly confused and disoriented. In no apparent distress. Slightly anxious/fidgety but redirectable. Refused to have VS taken. No IV site per day shift (Dr Mcghee aware). Needs assessed and attended to. Safety measure initiated and call light within reached.
[2022-01-02] MEDS: MIRTAZAPINE 15 MG TABLET PO SCH (20:05)
[2022-01-03 04:00] VITALS: BP 115/74
[2022-01-03] MEDS: PANTOPRAZOLE SODIUM 40 MG TABLET.DR PO SCH (06:14)
[2022-01-03] MEDS ORDERED: GLIMEPIRIDE 2 MG TABLET PO SCH (08:00)
[2022-01-03] MEDS: CLOTRIMAZOLE 1% CREAM 30 GM TUBE TOP SCH ×2 (08:18→17:53)
--- NOTE | 2022-01-03 09:51 | NUR ---
Patient slept well during the night. All due meds given and taken. No anxiety noted. Cooperative with care. Needs assessed and attended to. Safety measure maintained and call light within reached.
[2022-01-03 11:06] VITALS: BP 127/52
[2022-01-03 16:10] VITALS: BP 91/37
[2022-01-03] MEDS ORDERED: CLOT30CR24 TOP (16:23)
[2022-01-03] MEDS ORDERED: MIRT-93 PO (16:23)
[2022-01-03] MEDS ORDERED: GLIM2TAB PO (16:23)
[2022-01-03] MEDS ORDERED: ACET325T53 PO (16:23)
[2022-01-03] MEDS ORDERED: DOCU-141 PO (16:23)
[2022-01-03] MEDS ORDERED: PANT40TA49 PO (16:23)
[2022-01-03] MEDS ORDERED: OLAN2.5T3 PO (16:23)
[2022-01-03 16:48] VITALS: BP 104/56
[2022-01-03 20:00] VITALS: BP 113/49
--- NOTE | 2022-01-03 20:59 | NUR ---
2100 Picked up by ambulance for [facility] discharge and in stable condition. No complaints of pain and shortness of breath.
== END 2022-01-03 21:00 | DRG 682 ==
LOC: MEDSURG3 21:15
PROVIDERS: ADMIT Internal Medicine; ATTEND Internal Medicine
PROC: 05H533Z Insertion of Infusion Device into Right Subclavian Vein, Percutaneous Approach (ICD-10-PCS; principal; 2021-12-31)
PROC: B546ZZA Ultrasonography of Right Subclavian Vein, Guidance (ICD-10-PCS; 2021-12-31)
PROC: 05H633Z Insertion of Infusion Device into Left Subclavian Vein, Percutaneous Approach (ICD-10-PCS; 2022-01-02)
PROC: B547ZZA Ultrasonography of Left Subclavian Vein, Guidance (ICD-10-PCS; 2022-01-02)
DX: N17.0 Acute kidney failure with tubular necrosis (principal); I50.31 Acute diastolic (congestive) heart failure; F01.52 Vascular dementia, unspecified severity, with psychotic disturbance; G93.40 Encephalopathy, unspecified; D68.69 Other thrombophilia; R62.7 Adult failure to thrive; E87.6 Hypokalemia; E11.9 Type 2 diabetes mellitus without complications; E66.9 Obesity, unspecified; I11.0 Hypertensive heart disease with heart failure; Z85.828 Personal history of other malignant neoplasm of skin; Z74.09 Other reduced mobility; F39 Unspecified mood [affective] disorder; R22.0 Localized swelling, mass and lump, head; F32.9 Major depressive disorder, single episode, unspecified; Z87.440 Personal history of urinary (tract) infections; I45.10 Unspecified right bundle-branch block; Z86.73 Personal history of transient ischemic attack (TIA), and cerebral infarction without residual deficits; Z68.30 Body mass index [BMI] 30.0-30.9, adult; Z20.822 Contact with and (suspected) exposure to COVID-19
CPT/HCPCS: 36415; 70030-TC; 71045; 83735; 84100; 84443; 85025; 93005; A4663; C1758; G0378; J2060

== ENCOUNTER 2024-02-09 15:53 | Inpatient (IN) | payer MEDICARE, OTHER ==
[~2024-02-09] VITALS: Ht 152.4 cm; Wt 59.0 kg
[~2024-02-09 15:53] MED LIST: ACET325T53 PO; CLOT30CR24 TOP; DOCU-141 PO; GLIM2TAB PO; MIRT-93 PO; OLAN2.5T3 PO; PANT40TA49 PO
[2024-02-09 16:39] LABS: BASOPHILS # (AUTO) 0.1 K/UL (0.0-0.2); BASOPHILS % (AUTO) 0.3 % (0.0-2.0); EOSINOPHILS # (AUTO) 0.2 K/uL (0.0-0.7); EOSINOPHILS % (AUTO) 1.5 % (0.0-7.0); HEMATOCRIT 33.7 % (31.2-41.9); LYMPHOCYTES # (AUTO) 1.4 K/uL (0.8-4.8); LYMPHOCYTES % (AUTO) 9.5 % (20.5-51.5); MEAN CORPUSCULAR HEMOGLOBIN 30.8 uug (24.7-32.8); MEAN CORPUSCULAR HGB CONC 33 g/dL (32.3-35.6); MEAN CORPUSCULAR VOLUME 93.9 fL (75.5-95.3); MONOCYTES # (AUTO) 1.4 K/uL (0.1-1.30); MONOCYTES % (AUTO) 9.6 % (0.0-11.0); NEUTROPHILS # (AUTO) 11.8 K/uL (1.8-8.9); NEUTROPHILS % (AUTO) 79.1 % (38.5-71.5); PLATELET COUNT (AUTO) 203 K/uL (179-408); RED BLOOD CELL COUNT(AUTO) 3.58 MIL/uL (3.63-4.92); RED CELL DISTRIBUTION WIDTH 14.2 % (12.3-17.7); WHITE BLOOD COUNT (AUTO) 14.9 K/uL (3.8-11.8)
[2024-02-09] MEDS ORDERED: HYDROMORPHONE 1 MG/1 ML DISP.SYRIN ONE (16:39)
[2024-02-09] MEDS ORDERED: ONDANSETRON 4 MG/2 ML VIAL ONE (16:39)
[2024-02-09 16:40] LABS: DIFFERENTIAL COMMENT 1
[2024-02-09 16:44] LABS: CALCIUM 8.4 mg/dL (8.5-10.1); CARBON DIOXIDE 24 mmol/L (21-32); CHLORIDE 107 mmol/L (98-107); CREATININE 0.8 mg/dL (0.6-1.3); GLUCOSE 165 mg/dL (74-106); POTASSIUM 4.4 mmol/L (3.5-5.1); SODIUM SERUM 140 mmol/L (136-145); UREA NITROGEN, BLOOD 21 mg/dL (7-18)
[2024-02-09] MEDS: ONDANSETRON 4 MG/2 ML VIAL IV ONE (16:45)
[2024-02-09] MEDS: HYDROMORPHONE 1 MG/1 ML DISP.SYRIN IV ONE ×2 (16:45→17:48)
[2024-02-09] MEDS ORDERED: HYDROMORPHONE 2 MG/1 ML DISP.SYRIN ONE (17:46)
[2024-02-09] MEDS ORDERED: KETOROLAC TROMETHAMINE 15 MG INJ ONE (17:46)
[2024-02-09] MEDS: KETOROLAC TROMETHAMINE 15 MG INJ IVP ONE (17:48)
[2024-02-09] MEDS ORDERED: diphenhydrAMINE 50 MG/1 ML VIAL ONE ×2 (17:50→18:25)
[2024-02-09] MEDS ORDERED: BACITRACIN ZINC OINT 15 GM TUBE ONE (18:23)
[2024-02-09] MEDS: BACITRACIN ZINC OINT 15 GM TUBE TOP ONE (18:25)
[2024-02-09 19:15] VITALS: BP 100/20; TEMP 97.5; O2SAT 92
[2024-02-09] MEDS ORDERED: HYDROMORPHONE 2 MG/1 ML DISP.SYRIN IV PRN (21:45)
[2024-02-09] MEDS ORDERED: REMEDY ESSENTIAL ZINC PASTE 113 GM TP PRN (22:00)
[2024-02-09] MEDS ORDERED: CEFTRIAXONE /D5W 50ML IVPB **ER PYXIS IV ONE (22:13)
[2024-02-09 22:20] LABS: *BILIRUBIN,URIN NEGATIVE (NEGATIVE); *BLOOD, URINE NEGATIVE (NEGATIVE); *CLARITY,URINE CLEAR (CLEAR); *COLOR,URINE YELLOW (YELLOW); *KETONES,URINE NEGATIVE (NEGATIVE); *PROTEIN,URINE NEGATIVE (NEGATIVE); *UROBILINOGEN,URINE 0.2 E.U./dl (NORMAL); LEUKOCYTE ESTERASE ,URINE NEGATIVE (NEGATIVE); NITRITE, URINE NEGATIVE (NEGATIVE); UGLUCOSE NEGATIVE (NEGATIVE)
[2024-02-09] MEDS: CEFTRIAXONE 1 G in IV DEXTROSE 5% 50 ML IV SCH (23:24)
[2024-02-10] MEDS ORDERED: HYDROMORPHONE 2 MG/1 ML DISP.SYRIN IV PRN (06:30)
[2024-02-10] MEDS: PANTOPRAZOLE SODIUM 40 MG TABLET.DR PO SCH (07:39)
[2024-02-10 08:00] VITALS: BP 111/52; TEMP 97.5; O2SAT 98
[2024-02-10] MEDS ORDERED: ACETAMINOPHEN 325 MG TABLET-SA PATIENTS-PAIN ONLY PO PRN (10:15)
[2024-02-10] MEDS ORDERED: TRAM50TA2 PO (11:17)
[2024-02-10] MEDS ORDERED: MULT-1045 PO (11:17)
[2024-02-10] MEDS ORDERED: CHOL200059 PO (11:17)
[2024-02-10] MEDS ORDERED: ASCO500C18 PO (11:17)
[2024-02-10] MEDS ORDERED: DIVA250T4 PO (11:17)
[2024-02-10] MEDS: DIVALPROEX 250 MG TABLET.DR PO SCH (13:38)
[2024-02-10] MEDS ORDERED: DEXTROSE 50% 50 ML DISP.SYRIN IV PRN (15:00)
[2024-02-10 15:59] VITALS: BP 100/47; TEMP 98.6; O2SAT 98
[2024-02-10] MEDS: TRAMADOL HCL 50 MG TABLET PO SCH (16:05)
[2024-02-10] MEDS: DOCUSATE SODIUM 100 MG CAPSULE PO SCH (16:05)
[2024-02-10] MEDS: BLOOD SUGAR DIAGNOSTIC 1 EACH STRIP VI SCH (16:23)
[2024-02-10 16:30] LABS: BASOPHILS # (AUTO) 0.1 K/UL (0.0-0.2); BASOPHILS % (AUTO) 0.6 % (0.0-2.0); EOSINOPHILS % (AUTO) 0.1 % (0.0-7.0); HEMATOCRIT 26.6 % (31.2-41.9); HEMOGLOBIN 8.9 g/dL (10.9-14.3); LYMPHOCYTES # (AUTO) 1.2 K/uL (0.8-4.8); LYMPHOCYTES % (AUTO) 10.4 % (20.5-51.5); MEAN CORPUSCULAR HEMOGLOBIN 31.2 uug (24.7-32.8); MEAN CORPUSCULAR HGB CONC 33 g/dL (32.3-35.6); MEAN CORPUSCULAR VOLUME 93.3 fL (75.5-95.3); MONOCYTES # (AUTO) 1.5 K/uL (0.1-1.30); MONOCYTES % (AUTO) 13.2 % (0.0-11.0); NEUTROPHILS # (AUTO) 8.7 K/uL (1.8-8.9); NEUTROPHILS % (AUTO) 75.7 % (38.5-71.5); PLATELET COUNT (AUTO) 215 K/uL (179-408); RED BLOOD CELL COUNT(AUTO) 2.84 MIL/uL (3.63-4.92); RED CELL DISTRIBUTION WIDTH 13.9 % (12.3-17.7); WHITE BLOOD COUNT (AUTO) 11.5 K/uL (3.8-11.8)
[2024-02-10] MEDS: INSULIN REGULAR, HUMAN 1000 UNIT/10 ML VIAL SQ PRN (16:38)
[2024-02-10 16:39] LABS: DIFFERENTIAL COMMENT 1
[2024-02-10 16:43] LABS: CALCIUM 8.1 mg/dL (8.5-10.1); CARBON DIOXIDE 20 mmol/L (21-32); CHLORIDE 108 mmol/L (98-107); CREATININE 3.2 mg/dL (0.6-1.3); GLUCOSE 144 mg/dL (74-106); SODIUM SERUM 145 mmol/L (136-145); UREA NITROGEN, BLOOD 45 mg/dL (7-18)
[2024-02-10 16:53] LABS: THYROID STIMULATING HORMONE 2.119 mIU/mL (0.358-3.740)
[2024-02-10] MEDS ORDERED: OLANZAPINE 2.5 MG TABLET PO SCH ×2 (17:00)
[2024-02-10 19:10] VITALS: BP 94/53; TEMP 98.8; O2SAT 93
[2024-02-10] MEDS ORDERED: MIRTAZAPINE 15 MG TABLET PO SCH ×2 (21:00)
[2024-02-10] MEDS: ACETAMINOPHEN 325 MG TABLET PO PRN (21:23)
[2024-02-11 06:54] LABS: BASOPHILS % (AUTO) 0.4 % (0.0-2.0); EOSINOPHILS # (AUTO) 0.2 K/uL (0.0-0.7); HEMATOCRIT 24.6 % (31.2-41.9); HEMOGLOBIN 8.5 g/dL (10.9-14.3); LYMPHOCYTES # (AUTO) 1.2 K/uL (0.8-4.8); LYMPHOCYTES % (AUTO) 11.9 % (20.5-51.5); MEAN CORPUSCULAR HEMOGLOBIN 32.2 uug (24.7-32.8); MEAN CORPUSCULAR HGB CONC 35 g/dL (32.3-35.6); MEAN CORPUSCULAR VOLUME 92.9 fL (75.5-95.3); MONOCYTES # (AUTO) 1.5 K/uL (0.1-1.30); MONOCYTES % (AUTO) 15.2 % (0.0-11.0); NEUTROPHILS % (AUTO) 70.5 % (38.5-71.5); PLATELET COUNT (AUTO) 167 K/uL (179-408); RED BLOOD CELL COUNT(AUTO) 2.65 MIL/uL (3.63-4.92); RED CELL DISTRIBUTION WIDTH 13.9 % (12.3-17.7)
[2024-02-11] MEDS ORDERED: PANTOPRAZOLE SODIUM 40 MG TABLET.DR PO SCH (07:00)
[2024-02-11 07:22] LABS: DIFFERENTIAL COMMENT 1
[2024-02-11 07:25] LABS: CALCIUM 8.3 mg/dL (8.5-10.1); CARBON DIOXIDE 23 mmol/L (21-32); CHLORIDE 110 mmol/L (98-107); CREATININE 3.6 mg/dL (0.6-1.3); GLUCOSE 140 mg/dL (74-106); POTASSIUM 5.7 mmol/L (3.5-5.1); SODIUM SERUM 148 mmol/L (136-145); UREA NITROGEN, BLOOD 62 mg/dL (7-18)
[2024-02-11 08:00] VITALS: BP 112/43; TEMP 97.6; O2SAT 96
[2024-02-11] MEDS: MULTIVIT, IRON, MIN NO. 8, FA TABLET PO SCH (08:18)
[2024-02-11] MEDS: ASCORBIC ACID 500 MG TABLET PO SCH (08:19)
[2024-02-11] MEDS: CHOLECALCIFEROL 1,000 UNIT TABLET PO SCH (08:19)
[2024-02-11 08:59] LABS: EOSINOPHILS % (MANUAL) 2 % (0-8); LYMPHOCYTES % (MANUAL) 12 % (20-40); MONOCYTES % (MANUAL) 15 % (2-10); NEUTROPHILS % (MANUAL) 71 % (42-75); PLATELET ESTIMATE DECREASED
[2024-02-11] MEDS ORDERED: TRAMADOL HCL 50 MG TABLET PO PRN (11:00)
[2024-02-11] MEDS: SODIUM POLYSTYRENE SULFONATE 15 G/60 ML LIQUID UDC PO ONE (11:00)
[2024-02-11 11:42] VITALS: BP 128/51; TEMP 97.6; O2SAT 96
[2024-02-11] MEDS: IV D5 1/2 NS 1000 ML 1,000 ML IV PRN (12:22)
[2024-02-11] MEDS: ONDANSETRON 4 MG/2 ML VIAL IV PRN (12:23)
[2024-02-11] MEDS: MORPHINE SULFATE 2 MG/1 ML DISP.SYRIN IV PRN (12:23)
[2024-02-11 15:58] VITALS: BP 114/51; TEMP 97.6; O2SAT 94
[2024-02-11] MEDS: PROTEIN SUPPLEMENT (PROSTAT) 30 ML LIQUID PO SCH (17:00)
[2024-02-11 21:15] LABS: CHOLESTEROL 128 mg/dL (<200); HDL CHOLESTEROL 28 mg/dL (40-60); TRIGLYCERIDES 137 MG/DL (30-150)
[2024-02-11 21:18] LABS: BASOPHILS % (AUTO) 0.2 % (0.0-2.0); EOSINOPHILS # (AUTO) 0.3 K/uL (0.0-0.7); EOSINOPHILS % (AUTO) 3.5 % (0.0-7.0); LYMPHOCYTES # (AUTO) 0.6 K/uL (0.8-4.8); LYMPHOCYTES % (AUTO) 6.2 % (20.5-51.5); MEAN CORPUSCULAR HGB CONC 35 g/dL (32.3-35.6); MEAN CORPUSCULAR VOLUME 92.2 fL (75.5-95.3); MONOCYTES # (AUTO) 1.4 K/uL (0.1-1.30); MONOCYTES % (AUTO) 15.7 % (0.0-11.0); NEUTROPHILS # (AUTO) 6.8 K/uL (1.8-8.9); NEUTROPHILS % (AUTO) 74.4 % (38.5-71.5); PLATELET COUNT (AUTO) 146 K/uL (179-408); RED CELL DISTRIBUTION WIDTH 14.1 % (12.3-17.7); WHITE BLOOD COUNT (AUTO) 9.2 K/uL (3.8-11.8)
[2024-02-11 21:20] LABS: DIFFERENTIAL COMMENT 1; HEMOGLOBIN 7.3 g/dL (10.9-14.3); RED BLOOD CELL COUNT(AUTO) 2.28 MIL/uL (3.63-4.92)
[2024-02-11 21:37] LABS: ALANINE AMINOTRANSFERASE 18 U/L (14-59); ALBUMIN 2.4 g/dL (3.4-5.0); ALKALINE PHOSPHATASE 48 U/L (50-136); ASPARTATE AMINOTRANSFERASE 16 U/L (15-37); BILIRUBIN,TOTAL 0.2 mg/dL (0.2-1.0); CALCIUM 7.5 mg/dL (8.5-10.1); CARBON DIOXIDE 26 mmol/L (21-32); CHLORIDE 108 mmol/L (98-107); CREATININE 2.7 mg/dL (0.6-1.3); GLUCOSE 151 mg/dL (74-106); MAGNESIUM 2.1 mg/dL (1.8-2.4); PHOSPHOROUS 5.5 mg/dL (2.5-4.9); POTASSIUM 5.1 mmol/L (3.5-5.1); SODIUM SERUM 144 mmol/L (136-145); TOTAL PROTEIN, SERUM 5.4 g/dL (6.4-8.2); UREA NITROGEN, BLOOD 65 mg/dL (7-18)
[2024-02-11 21:42] LABS: EOSINOPHILS % (MANUAL) 5 % (0-8); LYMPHOCYTES % (MANUAL) 5 % (20-40); MONOCYTES % (MANUAL) 17 % (2-10); NEUTROPHILS % (MANUAL) 73 % (42-75); PLATELET ESTIMATE DECREASED
[2024-02-12 06:57] LABS: BASOPHILS % (AUTO) 0.3 % (0.0-2.0); EOSINOPHILS # (AUTO) 0.6 K/uL (0.0-0.7); EOSINOPHILS % (AUTO) 8.7 % (0.0-7.0); LYMPHOCYTES # (AUTO) 0.5 K/uL (0.8-4.8); LYMPHOCYTES % (AUTO) 6.3 % (20.5-51.5); MEAN CORPUSCULAR HGB CONC 35 g/dL (32.3-35.6); MEAN CORPUSCULAR VOLUME 92.3 fL (75.5-95.3); MONOCYTES % (AUTO) 14.4 % (0.0-11.0); NEUTROPHILS # (AUTO) 5.1 K/uL (1.8-8.9); NEUTROPHILS % (AUTO) 70.3 % (38.5-71.5); PLATELET COUNT (AUTO) 130 K/uL (179-408); RED CELL DISTRIBUTION WIDTH 13.8 % (12.3-17.7); WHITE BLOOD COUNT (AUTO) 7.2 K/uL (3.8-11.8)
[2024-02-12] MEDS ORDERED: FENTANYL CITRATE 100 MCG/2 ML AMPUL ONE (07:08)
[2024-02-12] MEDS ORDERED: KETAMINE HCL 500 MG/5 ML VIAL ONE (07:08)
[2024-02-12] MEDS ORDERED: FAMOTIDINE. 20 MG/2 ML VIAL IV ONE (07:09)
[2024-02-12] MEDS ORDERED: ALBUMIN HUMAN 5% 500 ML ONE (07:09)
[2024-02-12 07:13] LABS: ALANINE AMINOTRANSFERASE 15 U/L (14-59); ALBUMIN 2.3 g/dL (3.4-5.0); ALKALINE PHOSPHATASE 49 U/L (50-136); ASPARTATE AMINOTRANSFERASE 21 U/L (15-37); BILIRUBIN,DIRECT 0.1 mg/dL (0.0-0.2); BILIRUBIN,TOTAL 0.3 mg/dL (0.2-1.0); CALCIUM 7.1 mg/dL (8.5-10.1); CARBON DIOXIDE 25 mmol/L (21-32); CHLORIDE 109 mmol/L (98-107); CREATINE KINASE, TOTAL 155 U/L (26-192); CREATININE 2.1 mg/dL (0.6-1.3); GLUCOSE 123 mg/dL (74-106); MAGNESIUM 2.1 mg/dL (1.8-2.4); PHOSPHOROUS 4.1 mg/dL (2.5-4.9); POTASSIUM 4.4 mmol/L (3.5-5.1); SODIUM SERUM 143 mmol/L (136-145); TOTAL PROTEIN, SERUM 5.1 g/dL (6.4-8.2); UREA NITROGEN, BLOOD 60 mg/dL (7-18)
[2024-02-12] MEDS ORDERED: ETOMIDATE 20 MG/10 ML VIAL ONE (07:31)
[2024-02-12 07:34] LABS: DIFFERENTIAL COMMENT 1; RED BLOOD CELL COUNT(AUTO) 2.18 MIL/uL (3.63-4.92)
[2024-02-12 07:35] LABS: HEMATOCRIT 20.1 % (31.2-41.9)
[2024-02-12] MEDS ORDERED: VANCOMYCIN 1000 MG VIAL ONE (08:04)
[2024-02-12] MEDS ORDERED: HYDROMORPHONE 1 MG/1 ML DISP.SYRIN ONE (08:48)
[2024-02-12] MEDS: HYDROMORPHONE 1 MG/1 ML DISP.SYRIN IV PRN (09:17)
[2024-02-12] MEDS ORDERED: IV D5W-0.45% NS +20 KCL 1,000 ML IV PRN (09:30)
[2024-02-12] MEDS: IV NORMAL SALINE 500 ML BAG IV ONE (10:43)
[2024-02-12] MEDS: IV NORMAL SALINE 500 ML IV ONE (11:06)
[2024-02-12] MEDS: IV LACTATED RINGERS SOLUTION 1,000 ML IV PRN (11:39)
[2024-02-12 12:20] VITALS: BP 111/44; TEMP 98; O2SAT 95
[2024-02-12 13:00] VITALS: BP 111/50; TEMP 98
[2024-02-12] MEDS: METOPROLOL TARTRATE 5 MG/5 ML VIAL IVP ONE (13:00)
[2024-02-12] MEDS: MORPHINE SULFATE 2 MG/1 ML DISP.SYRIN IV PRN (14:09)
[2024-02-12 15:37] VITALS: BP 107/48; TEMP 97.6; O2SAT 98
[2024-02-12 20:00] VITALS: BP 111/51; TEMP 98.6; O2SAT 95
[2024-02-12 21:41] LABS: ANISOCYTOSIS 1+; EOSINOPHILS % (MANUAL) 7 % (0-8); LYMPHOCYTES % (MANUAL) 10 % (20-40); MONOCYTES % (MANUAL) 11 % (2-10); NEUTROPHILS % (MANUAL) 72 % (42-75); PLATELET ESTIMATE SLIGHT DECREASED
[2024-02-13] VITALS (11 sets, daily range): BP systolic 93–128; BP diastolic 41–64; TEMP 97–98.7; O2SAT 98–100
[2024-02-13 03:08] LABS: PTH, INTACT 44 pg/mL (15-65)
[2024-02-13 07:08] LABS: BASOPHILS % (AUTO) 0.4 % (0.0-2.0); EOSINOPHILS # (AUTO) 0.2 K/uL (0.0-0.7); HEMATOCRIT 21.9 % (31.2-41.9); HEMOGLOBIN 7.5 g/dL (10.9-14.3); LYMPHOCYTES # (AUTO) 0.7 K/uL (0.8-4.8); LYMPHOCYTES % (AUTO) 12.6 % (20.5-51.5); MEAN CORPUSCULAR HEMOGLOBIN 31.3 uug (24.7-32.8); MEAN CORPUSCULAR HGB CONC 34 g/dL (32.3-35.6); MEAN CORPUSCULAR VOLUME 91.2 fL (75.5-95.3); MONOCYTES % (AUTO) 19.9 % (0.0-11.0); NEUTROPHILS # (AUTO) 3.3 K/uL (1.8-8.9); NEUTROPHILS % (AUTO) 64.1 % (38.5-71.5); PLATELET COUNT (AUTO) 110 K/uL (179-408); RED CELL DISTRIBUTION WIDTH 13.8 % (12.3-17.7); WHITE BLOOD COUNT (AUTO) 5.2 K/uL (3.8-11.8)
[2024-02-13 07:17] LABS: DIFFERENTIAL COMMENT 1
[2024-02-13 07:22] LABS: CALCIUM 7.2 mg/dL (8.5-10.1); CARBON DIOXIDE 24 mmol/L (21-32); CHLORIDE 114 mmol/L (98-107); CREATININE 1.4 mg/dL (0.6-1.3); GLUCOSE 96 mg/dL (74-106); POTASSIUM 4.2 mmol/L (3.5-5.1); SODIUM SERUM 147 mmol/L (136-145); UREA NITROGEN, BLOOD 39 mg/dL (7-18)
[2024-02-13 07:24] LABS: LYMPHOCYTES % (MANUAL) 0 % (20-40); NEUTROPHILS % (MANUAL) 0 % (42-75)
[2024-02-13] MEDS: SOD FERRIC GLUC COMPLX/SUCROSE 125 MG in IV NORMAL SALINE 100 ML IV SCH (14:19)
[2024-02-14] MEDS: HYDROCODONE/APAP 10-325 MG TABLET PO PRN (01:02)
[2024-02-14 07:23] LABS: BASOPHILS % (AUTO) 0.3 % (0.0-2.0); EOSINOPHILS # (AUTO) 0.6 K/uL (0.0-0.7); EOSINOPHILS % (AUTO) 6.9 % (0.0-7.0); LYMPHOCYTES # (AUTO) 0.6 K/uL (0.8-4.8); LYMPHOCYTES % (AUTO) 7.6 % (20.5-51.5); MEAN CORPUSCULAR HEMOGLOBIN 31.4 uug (24.7-32.8); MEAN CORPUSCULAR HGB CONC 35 g/dL (32.3-35.6); MEAN CORPUSCULAR VOLUME 90.5 fL (75.5-95.3); MONOCYTES # (AUTO) 1.2 K/uL (0.1-1.30); MONOCYTES % (AUTO) 14.9 % (0.0-11.0); NEUTROPHILS # (AUTO) 5.8 K/uL (1.8-8.9); NEUTROPHILS % (AUTO) 70.3 % (38.5-71.5); PLATELET COUNT (AUTO) 141 K/uL (179-408); RED BLOOD CELL COUNT(AUTO) 2.54 MIL/uL (3.63-4.92); RED CELL DISTRIBUTION WIDTH 14.4 % (12.3-17.7); WHITE BLOOD COUNT (AUTO) 8.3 K/uL (3.8-11.8)
[2024-02-14 07:40] LABS: CALCIUM 7.5 mg/dL (8.5-10.1); CARBON DIOXIDE 26 mmol/L (21-32); CHLORIDE 107 mmol/L (98-107); GLUCOSE 102 mg/dL (74-106); POTASSIUM 3.8 mmol/L (3.5-5.1); SODIUM SERUM 138 mmol/L (136-145); UREA NITROGEN, BLOOD 33 mg/dL (7-18)
[2024-02-14 07:41] LABS: DIFFERENTIAL COMMENT 1
[2024-02-14 11:25] VITALS: BP 96/50; TEMP 97.7; O2SAT 97
[2024-02-14 15:30] VITALS: BP 102/49; TEMP 97.8; O2SAT 98
[2024-02-14 19:35] VITALS: BP 94/50; TEMP 98.1; O2SAT 97
[2024-02-15 06:36] VITALS: BP 124/53; TEMP 97.4; O2SAT 99
[2024-02-15 07:14] LABS: BASOPHILS % (AUTO) 0.4 % (0.0-2.0); EOSINOPHILS # (AUTO) 0.7 K/uL (0.0-0.7); EOSINOPHILS % (AUTO) 8.9 % (0.0-7.0); HEMATOCRIT 22.4 % (31.2-41.9); HEMOGLOBIN 7.8 g/dL (10.9-14.3); LYMPHOCYTES # (AUTO) 0.6 K/uL (0.8-4.8); LYMPHOCYTES % (AUTO) 7.6 % (20.5-51.5); MEAN CORPUSCULAR HEMOGLOBIN 31.5 uug (24.7-32.8); MEAN CORPUSCULAR HGB CONC 35 g/dL (32.3-35.6); MONOCYTES # (AUTO) 1.1 K/uL (0.1-1.30); MONOCYTES % (AUTO) 13.3 % (0.0-11.0); NEUTROPHILS # (AUTO) 5.5 K/uL (1.8-8.9); NEUTROPHILS % (AUTO) 69.8 % (38.5-71.5); PLATELET COUNT (AUTO) 166 K/uL (179-408); RED CELL DISTRIBUTION WIDTH 13.8 % (12.3-17.7); WHITE BLOOD COUNT (AUTO) 7.9 K/uL (3.8-11.8)
[2024-02-15 07:20] LABS: CALCIUM 7.5 mg/dL (8.5-10.1); CARBON DIOXIDE 25 mmol/L (21-32); CHLORIDE 108 mmol/L (98-107); CREATININE 0.9 mg/dL (0.6-1.3); GLUCOSE 88 mg/dL (74-106); POTASSIUM 3.4 mmol/L (3.5-5.1); SODIUM SERUM 142 mmol/L (136-145); UREA NITROGEN, BLOOD 33 mg/dL (7-18)
[2024-02-15 07:22] LABS: DIFFERENTIAL COMMENT 1; RED BLOOD CELL COUNT(AUTO) 2.46 MIL/uL (3.63-4.92)
[2024-02-15] MEDS: CALCIUM CARBONATE 500 MG TAB.CHEW PO SCH (08:48)
[2024-02-15] MEDS: POTASSIUM CHLORIDE 20 MEQ TAB.PRT.SR PO ONE (09:39)
[2024-02-15] MEDS ORDERED: PROT30LI PO (10:29)
[2024-02-15] MEDS ORDERED: CALC500T63 PO (10:29)
[2024-02-15 11:08] LABS: A/G RATIO 0.9 (0.7-1.7); ALBUMIN 2.2 g/dL (2.9-4.4); ALPHA-1-GLOBULIN 0.3 g/dL (0.0-0.4); ALPHA-2-GLOBULIN 0.8 g/dL (0.4-1.0); BETA GLOBULIN 0.8 g/dL (0.7-1.3); GAMMA GLOBULIN 0.5 g/dL (0.4-1.8); GLOBULIN, TOTAL 2.5 g/dL (2.2-3.9); M-SPIKE Not Observed g/dL (Not Observed); PROTEIN, TOTAL 4.7 g/dL (6.0-8.5)
[2024-02-15 11:51] VITALS: BP 115/61; TEMP 97.7; O2SAT 98
== END 2024-02-15 17:00 | DRG 480 ==
LOC: ER 15:53 → MEDSURG3 20:51 → TELE3 02-12 10:15 → MEDSURG3 02-13 10:40
PROVIDERS: ADMIT Nurse Practitioner Acute Care; ATTEND Nurse Practitioner Acute Care
PROC: 0QS736Z Reposition Left Upper Femur with Intramedullary Internal Fixation Device, Percutaneous Approach (ICD-10-PCS; principal; 2024-02-12)
PROC: 30233N1 Transfusion of Nonautologous Red Blood Cells into Peripheral Vein, Percutaneous Approach (ICD-10-PCS; 2024-02-13)
DX: S72.142A Displaced intertrochanteric fracture of left femur, initial encounter for closed fracture (principal); E43 Unspecified severe protein-calorie malnutrition; G93.41 Metabolic encephalopathy; N17.0 Acute kidney failure with tubular necrosis; R64 Cachexia; M85.88 Other specified disorders of bone density and structure, other site; W18.30XA Fall on same level, unspecified, initial encounter; Y92.129 Unspecified place in nursing home as the place of occurrence of the external cause; S01.81XA Laceration without foreign body of other part of head, initial encounter; W19.XXXA Unspecified fall, initial encounter; E86.9 Volume depletion, unspecified; Z85.828 Personal history of other malignant neoplasm of skin; Z79.899 Other long term (current) drug therapy; E87.5 Hyperkalemia; F03.90 Unspecified dementia, unspecified severity, without behavioral disturbance, psychotic disturbance, mood disturbance, and anxiety; R62.7 Adult failure to thrive; E83.51 Hypocalcemia; I48.91 Unspecified atrial fibrillation; D64.9 Anemia, unspecified; E11.9 Type 2 diabetes mellitus without complications; K21.9 Gastro-esophageal reflux disease without esophagitis; M85.862 Other specified disorders of bone density and structure, left lower leg; Z79.84 Long term (current) use of oral hypoglycemic drugs; D72.829 Elevated white blood cell count, unspecified
CPT/HCPCS: 36415; 70030-TC; 70450; 71045; 72170; 72192; 73502; 73503; 76770; 83735; 83970; 84100; 84155; 84165; 84443; 84484; 85018; 85025; 85730; 86850; 86900; 86901; 86920; 87040; 93005; 93307; A4649; A6209; C1713; C1758; G0378; J0690; J0696; J1171; J1200; J1815; J1885; J2270; J2405; J2916; J3010; J3370; J3490; J7040; J7120; P9016; P9045